=== PATIENT | female | born 1955 | race Caucasian/White ===

== ENCOUNTER 2022-09-11 20:01 | Inpatient (IN) | payer BC, OTHER ==
[~2022-09-11] VITALS: Ht 172.7 cm; Wt 67.1 kg
--- NOTE | 2022-09-11 20:24 | NUR ---
After being triaged, patient was placed back in the waiting room due to no beds available in the ER.
--- NOTE | 2022-09-11 22:14 | NUR ---
Patient placed in room 1b at this time.
--- NOTE | 2022-09-11 22:50 | NUR ---
Xray at bedside
[2022-09-11] MEDS: IV NORMAL SALINE 500 ML BAG IV ONE (22:55)
[2022-09-11 23:01] LABS: HEMATOCRIT 42.2 % (31.2-41.9); MEAN CORPUSCULAR HEMOGLOBIN 29.9 uug (24.7-32.8); MEAN CORPUSCULAR VOLUME 89.7 fL (75.5-95.3); PLATELET COUNT (AUTO) 264 K/uL (179-408)
[2022-09-11 23:02] LABS: *BILIRUBIN,URIN NEGATIVE (NEGATIVE); *BLOOD, URINE NEGATIVE (NEGATIVE); *COLOR,URINE YELLOW (YELLOW); *KETONES,URINE NEGATIVE (NEGATIVE); *UROBILINOGEN,URINE 0.2 E.U./dl (NORMAL); LEUKOCYTE ESTERASE ,URINE TRACE (NEGATIVE); NITRITE, URINE NEGATIVE (NEGATIVE); PH,URINE 5.5 (5.0-8.0); UGLUCOSE NEGATIVE (NEGATIVE)
[2022-09-11 23:11] LABS: CREATININE 0.7 mg/dL (0.6-1.3); POTASSIUM 3.9 mmol/L (3.5-5.1)
[2022-09-11 23:11] LABS: *AMPHETAMINE, URINE NEGATIVE (NEGATIVE); *CANNABINOID, URINE NEGATIVE (NEGATIVE); *CLARITY,URINE HAZY (CLEAR); *COCCAINE, URINE NEGATIVE (NEGATIVE); *PHENCYCLIDINE SCREEN,URINE NEGATIVE (NEGATIVE); BACTERIA,URINE FEW /HPF (NONE SEEN); SQUAMOUS EPITHELIAL CELL,UR FEW /HPF (NONE SEEN)
[2022-09-11 23:17] LABS: BILIRUBIN,TOTAL 0.3 mg/dL (0.2-1.0); TOTAL PROTEIN, SERUM 8.4 g/dL (6.4-8.2)
[2022-09-11 23:22] LABS: ETHANOL 258 MG/DL (0-0)
--- NOTE | 2022-09-11 23:28 | NUR ---
PATIENT DOES NOT RECALL NAMES AND DOSAGES OF HOME MEDICATION AT THIS TIME.
[2022-09-11 23:41] LABS: ACETAMINOPHEN < 2.0 ug/mL (10-30)
[2022-09-11 23:45] LABS: THYROID STIMULATING HORMONE < 0.007 mIU/mL (0.358-3.740)
--- NOTE | 2022-09-12 00:06 | NUR ---
Paged [employer] panel insurance verification representative to admit patient, waiting for Dr Torre to call back.
[2022-09-12] MEDS ORDERED: IV NORMAL SALINE 500 ML BAG IV ONE (00:15)
[2022-09-12] MEDS ORDERED: LACTULOSE 20 G/30 ML LIQUID UDC PO ONE (00:15)
--- NOTE | 2022-09-12 00:33 | NUR ---
Dr. Simon on panel call with Dr. Torre. Pending admission.
--- NOTE | 2022-09-12 00:40 | NUR ---
Per Charge nurse Anne in third floor. No avaliable beds in third floor. Floor currently full. Patient will stay in ER. ER charting will be done.
[2022-09-12] MEDS ORDERED: IV NS 1000 ML 1,000 ML IV PRN (00:45)
[2022-09-12] MEDS ORDERED: REMEDY ESSENTIAL ZINC PASTE 113 GM TP PRN (00:45)
[2022-09-12] MEDS ORDERED: ACETAMINOPHEN 325 MG TABLET PO PRN (00:45)
[2022-09-12] MEDS ORDERED: MAGNESIUM HYDROXIDE 30 ML LIQUID UDC PO PRN (00:45)
[2022-09-12] MEDS ORDERED: ONDANSETRON 4 MG/2 ML VIAL IV PRN (00:45)
--- NOTE | 2022-09-12 01:00 | NUR ---
Patient sleeping and resting comfortably in bed. No signs of distress noted.
[2022-09-12] MEDS ORDERED: LACTULOSE 20 G/30 ML LIQUID UDC ONE (01:15)
[2022-09-12] MEDS ORDERED: CEFTRIAXONE 1 G in IV DEXTROSE 5% 50 ML IV ONE (01:45)
--- NOTE | 2022-09-12 04:52 | NUR ---
Spoke to Charge nurse Anne in third floor. Patient will be admitted to third floor room 325 after 7:15am.
[2022-09-12] MEDS ORDERED: CEFTRIAXONE /D5W 50ML IVPB **ER PYXIS IV ONE (04:58)
--- NOTE | 2022-09-12 05:06 | NUR ---
Rocephin 1g in IV Dextrose 5% in 50ml started at 05:00am. Order delayed due to [employer] downtime.
--- NOTE | 2022-09-12 06:15 | NUR ---
Report given to Anne WHITNEY
[2022-09-12] MEDS ORDERED: PANTOPRAZOLE SODIUM 40 MG TABLET.DR PO SCH (07:00)
--- NOTE | 2022-09-12 07:01 | NUR ---
Patient taken to third floor room 325 via gurney with personal belongings. Patient in stable condition, no signs of distress. Anne WHITNEY aware of patients arrival.
[2022-09-12 12:00] VITALS: BP 135/53
[2022-09-12 16:00] VITALS: BP 145/58
[2022-09-12] MEDS ORDERED: LISI1TAB32 PO (16:12)
[2022-09-12] MEDS ORDERED: METH5TAB6 PO (16:12)
[2022-09-12] MEDS ORDERED: FLUO20CA42 PO (16:12)
[2022-09-12] MEDS ORDERED: OFLO5DRO5 OT (16:17)
[2022-09-12] MEDS ORDERED: METH5TAB34 PO (19:11)
--- NOTE | 2022-09-12 19:49 | NUR ---
PT ADMITTED FOR HEADACHE HAD ELEVATED BLOOD ALCOHOL LEVEL, NO C/O OF HEADACHES TODAY AAOX3 AMBULATINH WITHOUT DIFFICULTY. FACE TIME WITH JANET ON PHONE FOR D/C TONIGHT.
[2022-09-12 20:30] VITALS: BP 137/66
--- NOTE | 2022-09-12 22:15 | NUR ---
Patient AAOx4. In no acute distress. VS WNL. Denies any pain or discomfort. Discharge to home with belongings and discharge paper work with paper. Patient picked up by private car.
[2022-09-13] MEDS ORDERED: FLUOXETINE HCL 20 MG CAPSULE PO SCH (09:00)
[2022-09-13] MEDS ORDERED: LISINOPRIL 10 MG TABLET PO SCH (09:00)
[2022-09-13] MEDS ORDERED: HYDROCHLOROTHIAZIDE 12.5 MG CAPSULE PO SCH (09:00)
[2022-09-13] MEDS ORDERED: METHIMAZOLE 5 MG TABLET PO SCH (09:00)
[2022-09-13] MEDS ORDERED: OFLOXACIN 0.3% OTIC DROP 5 ML BOTTLE OT SCH (09:00)
== END 2022-09-12 22:34 | disposition home or self-care (01) | DRG 103 ==
LOC: ER 20:07 → TELE3 09-12 00:42
PROVIDERS: ADMIT Student in an Organized Health Care Education/Training Program; ATTEND Nurse Practitioner Acute Care
DX: G44.209 Tension-type headache, unspecified, not intractable (principal); N39.0 Urinary tract infection, site not specified; E72.20 Disorder of urea cycle metabolism, unspecified; B96.89 Other specified bacterial agents as the cause of diseases classified elsewhere; S09.90XA Unspecified injury of head, initial encounter; V58.6XXA Passenger in pick-up truck or van injured in noncollision transport accident in traffic accident, initial encounter; Y92.410 Unspecified street and highway as the place of occurrence of the external cause; Y99.0 Civilian activity done for income or pay; I10 Essential (primary) hypertension; E05.90 Thyrotoxicosis, unspecified without thyrotoxic crisis or storm; Z86.19 Personal history of other infectious and parasitic diseases; M25.511 Pain in right shoulder; Z88.6 Allergy status to analgesic agent; Z88.8 Allergy status to other drugs, medicaments and biological substances; F10.90 Alcohol use, unspecified, uncomplicated; Y90.8 Blood alcohol level of 240 mg/100 ml or more
CPT/HCPCS: 36415; 70450; 71045; 83605; 84443; 84484; 85025; G0378; G0480; J0696; J7040